=== PATIENT | male | born 1975 | race African-American/Black ===

== ENCOUNTER 2025-01-09 10:44 | Emergency (ER) | payer MEDICAID, OTHER ==
[~2025-01-09] VITALS: Ht 182.9 cm; Wt 104.3 kg
[2025-01-09] MEDS ORDERED: LIDO30AD10 TP (12:23)
[2025-01-09] MEDS ORDERED: CYCL5TAB PO (12:23)
[2025-01-09] MEDS ORDERED: IBUP-1955 PO (12:23)
[2025-01-09 12:32] VITALS: BP 130/87; TEMP 98.5; O2SAT 98
== END 2025-01-09 12:34 | disposition home or self-care (01) ==
LOC: ER 10:54
DX: S43.491A Other sprain of right shoulder joint, initial encounter (principal); S76.011A Strain of muscle, fascia and tendon of right hip, initial encounter; S09.8XXA Other specified injuries of head, initial encounter; V23.09XA Other motorcycle driver injured in collision with car, pick-up truck or van in nontraffic accident, initial encounter; Y93.55 Activity, bike riding; Y92.488 Other paved roadways as the place of occurrence of the external cause; Y99.8 Other external cause status
CPT/HCPCS: 70450-TC; 73030-TC; 73502